=== PATIENT | female | born 2000 | race Two or more races ===

== ENCOUNTER 2025-06-13 18:17 | Emergency (ER) | payer OTHER ==
[~2025-06-13] VITALS: Ht 165.1 cm; Wt 66.7 kg
[2025-06-13 18:42] VITALS: BP 95/64; O2SAT 98
[2025-06-13 20:26] LABS: BASO % 0.3 % (0.1-1.2); EOS # 0.06 (0.04-0.54); EOS % 0.4 % (0.7-7.0); LYMPH # 2.05 (1.18-3.74); LYMPH % 12.9 % (19.3-53.1); MEAN PLATELET VOLUME 11.30 fl (9.4-12.4); MONO # 0.79 (0.24-0.82); MONO % 5.0 % (4.7-12.5); NEUT # 12.89 (1.56-6.13); NEUT % 81.1 % (34.0-71.1); RED CELL DISTRIBUTION WIDTH 13.0 % (11.6-14.4)
[2025-06-13 20:31] LABS: URINE APPEARANCE Clear; URINE BILIRRUBIN Negative (NEGATIVE); URINE BLOOD Large; URINE COLOR Yellow; URINE GLUCOSE Negative (NEGATIVE); URINE KETONE Negative (NEGATIVE); URINE LEUKOCYTE Large; URINE NITRATE Negative; URINE PROTEIN 30 (NEGATIVE); URINE UROBILINOGEN 0.2 E.U./dl
[2025-06-13 20:37] LABS: URINE BACTERIA 177.6 uL (0.0-1933); URINE EPITHELIAL CELLS 3.8 uL (0.0-38.8); URINE RBC 100.6 uL (0.0-20.8); URINE WBC 744.6 uL (0.0-23.2)
[2025-06-13 20:39] LABS: URINE CAST 0.29 uL (0.0-1.40)
[2025-06-13 21:10] LABS: ALT/SGPT 14.0 U/L (12-78); AST/SGOT 9.0 U/L (15-37); BILIRUBIN TOTAL 0.41 mg/dL (0.3-1.2); BUN CREA RATIO 12.0 (7.0-25.0); CREATININE SERUM 0.58 mg/dL (0.55-1.02); GFR 124.7; GLOBULINA 3.7 G/DL (2.4-3.5); GLUCOSE FASTING 110.0 mg/dL (65-100); OSMOLALITY SERUM 276.0 MOSM/KG (275-295)
[2025-06-13] MEDS ORDERED: CEFTRIAXONE SODIUM 2,000 MG VIAL IV ONE (23:00)
[2025-06-13] MEDS ORDERED: KETOROLAC TROMETHAMINE 30 MG VIAL IV ONE (23:15)
[2025-06-13] MEDS ORDERED: ONDANSETRON HCL 2 MG/ML VIAL IV ONE (23:15)
[2025-06-13] MEDS ORDERED: FAMOTIDINE/PF 20 MG/2 ML VIAL IV ONE (23:15)
[2025-06-13] MEDS ORDERED: CEFTRIAXONE SODIUM 2,000 MG VIAL ONE (23:37)
[2025-06-13] MEDS ORDERED: KETOROLAC TROMETHAMINE 30 MG VIAL ONE (23:37)
[2025-06-13] MEDS ORDERED: FAMOTIDINE/PF 20 MG/2 ML VIAL ONE (23:37)
[2025-06-13] MEDS ORDERED: ONDANSETRON HCL 2 MG/ML VIAL ONE (23:37)
[2025-06-13] MEDS ORDERED: 0.9 % SODIUM CHLORIDE 1,000 ML IV ONE (23:45)
== END 2025-06-14 03:01 | disposition home or self-care (01) ==
LOC: ER 18:17
PROVIDERS: General Practice
DX: R30.0 Dysuria (principal); N39.0 Urinary tract infection, site not specified